=== PATIENT | female | born 1955 | race Caucasian/White ===

== ENCOUNTER → 2019-01-31 | Outpatient (CLI) | payer OTHER | END | disposition home or self-care (01) | LOC: CFH 09:40 | PROVIDERS: ATTEND Family Medicine | DX: Z12.2 Encounter for screening for malignant neoplasm of respiratory organs (principal); Z13.820 Encounter for screening for osteoporosis; M81.0 Age-related osteoporosis without current pathological fracture; F17.210 Nicotine dependence, cigarettes, uncomplicated | CPT/HCPCS: 77080; G0297 ==

== ENCOUNTER → 2020-11-05 | Outpatient (CLI) | payer OTHER | END | disposition home or self-care (01) | LOC: CFH 08:12 | PROVIDERS: ATTEND Family Medicine | DX: Z12.31 Encounter for screening mammogram for malignant neoplasm of breast (principal); Z12.2 Encounter for screening for malignant neoplasm of respiratory organs; E04.1 Nontoxic single thyroid nodule; E04.9 Nontoxic goiter, unspecified; F17.209 Nicotine dependence, unspecified, with unspecified nicotine-induced disorders; R19.00 Intra-abdominal and pelvic swelling, mass and lump, unspecified site | CPT/HCPCS: 71271; 76536; 77063; 77067; 93978 ==

== ENCOUNTER 2021-02-23 16:30 | Observation (INO) | payer OTHER, MEDICARE ==
[~2021-02-23] VITALS: Ht 165.1 cm; Wt 66.4 kg
--- NOTE | 2021-02-23 16:42 | NUR ---
PT BIBA FROM WORK FOR C/[employer] R-SIDED [employer]ING[employer] FOR 1 WK THAT RADIATED UP TO R-ELBOW AND R-SIDE OF HER FACE FOR 1-2 MIN TODAY. PT STATED LAST TUESDAY SHE FELT SHE COULD NOT SPEAK OR PRONOUNCE WORDS. PT CHANGED INTO GOWN, MONITORS IN PLACE. CALL LIGHT WITHIN REACH.
[2021-02-23] MEDS ORDERED: SODIUM CHLORIDE FLUSH 10ML SYR IVF ONE (17:00)
[2021-02-23] MEDS ORDERED: ASPIRIN 81 MG TABLET CHEW PO ONE (17:00)
[2021-02-23] MEDS ORDERED: ASPIRIN 81 MG TABLET CHEW ONE (17:04)
[2021-02-23] MEDS ORDERED: PLEASE ENTER ALLERGIES MC SCH (17:30)
[2021-02-23 17:57] LABS: BASOPHILS % (AUTO) 1 % (0-1); EOSINOPHILS % (AUTO) 3 % (1-7); LYMPHOCYTES % (AUTO) 34 % (22-44); MD NO; MEAN CORPUSCULAR HEMOGLOBIN 30.8 pg (27.0-34.8); MEAN CORPUSCULAR HGB CONC 34.1 g/dL (32.4-35.8); MEAN PLATELET VOLUME 7.5 fL (7.4-10.4); MONOCYTES % (AUTO) 6 % (2-9); NEUTROPHILS % (AUTO) 57 % (42-75); PLATELET COUNT 299 x10^3/uL (130-400); RED BLOOD COUNT 4.73 x10^6/uL (3.82-5.3); RED CELL DISTRIBUTION WIDTH 13.3 % (9.6-15.2)
[2021-02-23 18:02] LABS: ALBUMIN 3.7 g/dL (3.4-5.0); ANION GAP 4 mmol/L (5-15); CALCIUM 8.8 mg/dL (8.5-10.1); CHLORIDE 109 mmol/L (98-107); CREATININE 0.61 mg/dL (0.55-1.02)
[2021-02-23 18:06] LABS: TROPONIN I < 0.015 ng/mL (0.000-0.045)
[2021-02-23] MEDS ORDERED: VARE0.5T PO (18:36)
[2021-02-23] MEDS ORDERED: METH5TAB6 PO (18:36)
[2021-02-23] MEDS ORDERED: ESCI5TAB7 PO (18:36)
[2021-02-23] MEDS ORDERED: PROP40TA PO (18:36)
--- NOTE | 2021-02-23 18:51 | NUR ---
REPORT FROM JUDY OLSON
--- NOTE | 2021-02-23 19:21 | NUR ---
REPORT GIVEN TO MILES OLSON
[2021-02-23 20:10] VITALS: BP 143/81
[2021-02-23] MEDS ORDERED: BISACODYL 10 MG SUPP PR PRN (20:30)
[2021-02-23] MEDS ORDERED: ONDANSETRON ODT 4 MG PO PRN (20:30)
[2021-02-23] MEDS ORDERED: OXYcodone IR 5MG TABLET PO PRN (20:30)
[2021-02-23] MEDS ORDERED: PROMETHAZINE 25 MG/ML, 1ML IM PRN (20:30)
[2021-02-23] MEDS ORDERED: ACETAMINOPHEN 325 MG TABLET PO PRN (20:30)
[2021-02-23] MEDS ORDERED: ONDANSETRON 2MG/ML, 2ML IVPush PRN (20:30)
[2021-02-23] MEDS ORDERED: hydrALAzine 20 MG/ML, 1ML IVPush PRN (20:30)
[2021-02-23] MEDS ORDERED: DOCUSATE 100 MG CAPSULE PO PRN (20:30)
[2021-02-23] MEDS ORDERED: POLYETHYLENE GLYCOL 17 GM PACKET PO PRN (20:30)
[2021-02-23] MEDS: VARENICLINE 1MG TABLET PO SCH (21:00)
[2021-02-23] MEDS ORDERED: VARENICLINE 0.5MG TABLET PO SCH (21:00)
[2021-02-23] MEDS: METHIMAZOLE 5 MG TAB PO SCH (21:24)
[2021-02-23] MEDS: ESCITALOPRAM 10MG TABLET PO SCH (21:25)
[2021-02-23] MEDS: ENOXAPARIN 40 MG/0.4 ML SQ SCH (21:26)
[2021-02-24 02:00] VITALS: BP 136/74
[2021-02-24 05:19] LABS: BASOPHILS % (AUTO) 1 % (0-1); EOSINOPHILS % (AUTO) 4 % (1-7); LYMPHOCYTES % (AUTO) 37 % (22-44); MEAN CORPUSCULAR HEMOGLOBIN 30.7 pg (27.0-34.8); MEAN CORPUSCULAR HGB CONC 33.8 g/dL (32.4-35.8); MEAN PLATELET VOLUME 7.6 fL (7.4-10.4); MONOCYTES % (AUTO) 8 % (2-9); NEUTROPHILS % (AUTO) 51 % (42-75); PLATELET COUNT 242 x10^3/uL (130-400); RED BLOOD COUNT 4.71 x10^6/uL (3.82-5.3); RED CELL DISTRIBUTION WIDTH 13.5 % (9.6-15.2)
[2021-02-24 05:20] LABS: MD NO
[2021-02-24 05:23] LABS: ALBUMIN 3.2 g/dL (3.4-5.0); ANION GAP 6 mmol/L (5-15); CALCIUM 8.5 mg/dL (8.5-10.1); CHLORIDE 106 mmol/L (98-107)
[2021-02-24 05:31] LABS: ALANINE AMINOTRANSFERASE 105 U/L (12-78); ALKALINE PHOSPHATASE 235 U/L (45-117); BILIRUBIN,TOTAL 0.4 mg/dL (0.2-1.0); CHOL/HDL RATIO 4.8; CHOLESTEROL, TOTAL 168 mg/dL (140-239); CREATININE 0.54 mg/dL (0.55-1.02); HDL CHOL % 21 % (28-40); HDL CHOLESTEROL (DIRECT) 35 mg/dL (40-60); LDL CHOLESTEROL,CALCULATED 90 mg/dL (54-169); LDL/HDL RATIO 2.6 (0.5-3.0); TOTAL PROTEIN 6.7 g/dL (6.4-8.2); TRIGLYCERIDES 217 mg/dL (50-200); VLDL CHOLESTEROL 43 mg/dL (0-25)
[2021-02-24 06:56] VITALS: BP 145/78
[2021-02-24] MEDS: METHIMAZOLE 5 MG TAB PO SCH ×2 (08:14→21:18)
[2021-02-24] MEDS: VARENICLINE 1MG TABLET PO SCH ×2 (08:14→21:17)
[2021-02-24] MEDS: ESCITALOPRAM 10MG TABLET PO SCH ×2 (08:14→21:17)
[2021-02-24] MEDS: PROPRANOLOL 40 MG TABLET PO SCH (08:15)
[2021-02-24] MEDS: ASPIRIN 325 MG TABLET PO SCH (11:18)
[2021-02-24 12:34] VITALS: BP 135/69
[2021-02-24] MEDS ORDERED: ASPI325T17 PO (13:05)
[2021-02-24 18:50] VITALS: BP 126/77
[2021-02-24] MEDS: ENOXAPARIN 40 MG/0.4 ML SQ SCH (21:21)
[2021-02-25 00:32] VITALS: BP 114/65
[2021-02-25] MEDS: ASPIRIN 325 MG TABLET PO SCH (05:42)
[2021-02-25 06:37] VITALS: BP 114/73
[2021-02-25] MEDS ORDERED: ATOR40TA78 PO (07:27)
[2021-02-25] MEDS: PROPRANOLOL 40 MG TABLET PO SCH (07:50)
[2021-02-25] MEDS: METHIMAZOLE 5 MG TAB PO SCH (07:50)
[2021-02-25] MEDS: VARENICLINE 1MG TABLET PO SCH (07:50)
[2021-02-25] MEDS: ESCITALOPRAM 10MG TABLET PO SCH (07:50)
== END 2021-02-25 10:15 | disposition home or self-care (01) ==
LOC: ED 18:08 → INTOOBSV 18:26 → EDIP 18:26 → 4WST 19:56 → DCLOUNGE 02-25 10:07
PROVIDERS: ADMIT Internal Medicine; ATTEND Hospitalist
DX: G45.9 Transient cerebral ischemic attack, unspecified (principal); Q21.1 Atrial septal defect; E05.90 Thyrotoxicosis, unspecified without thyrotoxic crisis or storm; F41.9 Anxiety disorder, unspecified; I25.2 Old myocardial infarction; R47.01 Aphasia; Z88.0 Allergy status to penicillin; Z79.899 Other long term (current) drug therapy; Z87.891 Personal history of nicotine dependence; Z86.73 Personal history of transient ischemic attack (TIA), and cerebral infarction without residual deficits
CPT/HCPCS: 36415; 70450; 70551; 71045; 80048; 80053; 80061; 82040; 83036; 83735; 84100; 84443; 84484; 85025; 93005; 93306; 93356; 93880; 96372; 97161; 97165; 99285; G0378; J1650

== ENCOUNTER → 2021-04-29 | Outpatient (CLI) | payer OTHER, MEDICARE ==
[~2021-04-29] MED LIST: ASPI325T17 PO; ATOR40TA78 PO; ESCI5TAB7 PO; METH5TAB6 PO; OMNIPAQUE 350 MG/ML, 100ML BOTTLE ONE; PROP40TA PO; VARE0.5T PO
== END | disposition home or self-care (01) ==
LOC: CFH 09:11
PROVIDERS: ATTEND Nurse Practitioner Family
DX: I66.12 Occlusion and stenosis of left anterior cerebral artery (principal); I63.9 Cerebral infarction, unspecified
CPT/HCPCS: 70496; 82565; Q9967

== ENCOUNTER 2021-05-28 05:56 | Day surgery (SDC) | payer OTHER, MEDICARE ==
[~2021-05-28] VITALS: Ht 165.1 cm; Wt 75.0 kg
[~2021-05-28 05:56] MED LIST changes: -OMNIPAQUE 350 MG/ML, 100ML BOTTLE ONE
[2021-05-28 06:23] VITALS: BP 136/74
[2021-05-28] MEDS ORDERED: SODIUM CHLORIDE 0.9% 1,000 ML IV ONE (06:30)
[2021-05-28] MEDS ORDERED: PROPOFOL 10 MG/ML, 20ML ONE (07:28)
== END 2021-05-28 09:10 | disposition home or self-care (01) ==
LOC: CACL 05:56
PROVIDERS: ATTEND Internal Medicine Cardiovascular Disease
DX: Q21.1 Atrial septal defect (principal); E78.5 Hyperlipidemia, unspecified; E05.80 Other thyrotoxicosis without thyrotoxic crisis or storm; F17.210 Nicotine dependence, cigarettes, uncomplicated; Z88.0 Allergy status to penicillin; Z79.82 Long term (current) use of aspirin; Z79.899 Other long term (current) drug therapy; Z72.89 Other problems related to lifestyle; Z86.73 Personal history of transient ischemic attack (TIA), and cerebral infarction without residual deficits; Z98.890 Other specified postprocedural states; Z20.822 Contact with and (suspected) exposure to COVID-19
CPT/HCPCS: 87635; 93312; 93321; 93325; J2704

== ENCOUNTER 2021-06-10 10:57 | Day surgery (SDC) | payer OTHER, MEDICARE ==
[~2021-06-10] VITALS: Ht 165.1 cm; Wt 75.0 kg
[2021-06-10] MEDS ORDERED: LIDOCAINE 2%, 20ML ONE (11:19)
== END 2021-06-10 12:42 | disposition home or self-care (01) ==
LOC: CACL 10:57
PROVIDERS: ATTEND Internal Medicine Cardiovascular Disease
DX: I63.9 Cerebral infarction, unspecified (principal); Q21.1 Atrial septal defect; E78.5 Hyperlipidemia, unspecified; E05.80 Other thyrotoxicosis without thyrotoxic crisis or storm; F17.210 Nicotine dependence, cigarettes, uncomplicated; Z79.82 Long term (current) use of aspirin; Z79.899 Other long term (current) drug therapy; Z88.0 Allergy status to penicillin; Z72.89 Other problems related to lifestyle
CPT/HCPCS: 33285; C1764